=== PATIENT | male | born 1970 | race Caucasian/White ===

== ENCOUNTER 2019-07-05 12:23 | Inpatient (IN) ==
[2019-07-05] MEDS ORDERED: *HR* HYDROmorphone (PF) 1 MG/ML SYRINGE IVP ONE (12:35)
[2019-07-05] MEDS ORDERED: Ondansetron 4 MG/2 ML VIAL IVP ONE (12:35)
[2019-07-05] MEDS ORDERED: Isovue-370 500 ML BOTTLE IVP ONE (12:35)
[2019-07-05] MEDS ORDERED: 0.9 % Sodium Chloride 1,000 ML IVC ONE (12:35)
[2019-07-05 12:54] LABS: Bilirubin,Urine Negative (Negative); Blood,Urine Negative (Negative); Clarity,Urine Clear (Clear); Color,Urine Yellow (Yellow); Glucose,Urine (UA) Normal (Normal); Ketones,Urine Negative (Negative); Leukocyte Esterase,Urine Negative (Negative); Nitrite,Urine Negative (Negative); PH,Urine 5.5 pH Units (5.0-8.0); Protein,Urine Negative (Neg-Trace); Specific Gravity,Urine 1.024 (1.010-1.025); Urobilinogen,Urine Normal (Normal)
[2019-07-05 13:16] LABS: Basophils # 0.1 K/mcL (0.0-0.2); Basophils % 0.4 %; Eosinophils # 0.1 K/mcL (0.0-0.6); Eosinophils % 0.6 %; Hematocrit 41.8 % (37.5-50.1); Hemoglobin 14.6 g/dL (12.9-16.9); Immature Granulocytes % 0.4 % (0-4); Lymphocytes # 1.5 K/mcL (0.6-4.6); Lymphocytes % 10.2 %; Mean Corpuscular HGB Conc 34.9 g/dL (31.6-35.5); Mean Corpuscular Hemoglobin 29.1 pg (28.0-33.3); Mean Corpuscular Volume 83.3 fL (83.0-100.0); Mean Platelet Volume 12.4 fL (9.4-12.4); Monocytes # 1.3 K/mcL (0.0-1.3); Monocytes % 8.9 %; Neutrophils # 11.3 K/mcL (1.6-8.9); Platelet Count 157 K/mcL (140-400); Red Blood Count 5.02 M/mcL (4.19-5.50); Red Cell Distribution Width 12.9 % (11.5-14.5); Segmented Neutrophils % 79.5 %; White Blood Count 14.2 K/mcL (4.3-11.1)
[2019-07-05 13:44] LABS: Alanine Aminotransferase 17 Units/L (7-52); Albumin 4.2 g/dL (3.5-5.7); Albumin/Globulin Ratio 1.4 (1.1-2.2); Alkaline Phosphatase 65 Units/L (34-104); Amylase 21 Units/L (29-103); Aspartate Amino Transferase 10 Units/L (13-39); BUN/Creatinine Ratio 15 (6-26); Bilirubin,Direct 0.3 mg/dL (0.0-0.2); Bilirubin,Indirect 0.9 mg/dL (0.0-1.0); Bilirubin,Total 1.2 mg/dL (0.3-1.0); Blood Urea Nitrogen 12 mg/dL (6-20); Calcium 9.3 mg/dL (8.6-10.3); Carbon Dioxide 25 mEq/L (23-29); Chloride 103 mEq/L (98-107); Globulin 2.9 g/dL (2.4-3.5); Glucose 110 mg/dL (70-105); Lipase 14 Units/L (11-82); Osmolality,Calculated 282 (280-300); Potassium 3.9 mEq/L (3.5-5.1); Sodium 136 mEq/L (136-145); Total Protein 7.1 g/dL (6.4-8.9); eGFR For African Americans > 60 (> 60); eGFR For Non-African Americans > 60 (> 60)
[2019-07-05] MEDS ORDERED: Piperacillin/Tazobactam 3.375 GM in 0.9 % Sodium Chloride Mini Bag 100 ML IVPB ONE (14:51)
[2019-07-05] MEDS ORDERED: Acetaminophen 325 MG TABLET PO PRN (15:32)
[2019-07-05] MEDS ORDERED: Naloxone 0.4 MG/ML INJ IVP PRN (15:32)
[2019-07-05] MEDS ORDERED: Ondansetron 4 MG/2 ML VIAL IVP PRN (15:32)
[2019-07-05 18:03] LABS: INR 1.2; Prothrombin Time 13.8 Seconds (9.4-12.1)
[2019-07-05 18:06] LABS: Activated Partial Thrombo Time 31.6 Seconds (26.0-36.0)
[2019-07-05] MEDS: *HR* OxyCODONE/APAP 10/325 TABLET PO PRN (19:51)
[2019-07-05] MEDS ORDERED: *HR* LORazepam 2 MG/ML VIAL IVP PRN (19:58)
[2019-07-05] MEDS: Cefepime HCl 2,000 MG in 0.9 % Sodium Chloride Mini Bag 100 ML IVPB SCH (22:26)
[2019-07-06 02:17] LABS: Basophils # 0.1 K/mcL (0.0-0.2); Basophils % 0.6 %; Eosinophils # 0.2 K/mcL (0.0-0.6); Eosinophils % 1.6 %; Hematocrit 38.8 % (37.5-50.1); Immature Granulocytes % 0.4 % (0-4); Lymphocytes # 1.7 K/mcL (0.6-4.6); Lymphocytes % 15.4 %; Mean Corpuscular HGB Conc 33.5 g/dL (31.6-35.5); Mean Corpuscular Volume 86.6 fL (83.0-100.0); Mean Platelet Volume 12.4 fL (9.4-12.4); Monocytes # 1.1 K/mcL (0.0-1.3); Monocytes % 10.3 %; Neutrophils # 7.8 K/mcL (1.6-8.9); Platelet Count 130 K/mcL (140-400); Red Blood Count 4.48 M/mcL (4.19-5.50); Segmented Neutrophils % 71.7 %; White Blood Count 10.9 K/mcL (4.3-11.1)
[2019-07-06 02:21] LABS: INR 1.3; Prothrombin Time 14.4 Seconds (9.4-12.1)
[2019-07-06 02:37] LABS: BUN/Creatinine Ratio 16 (6-26); Blood Urea Nitrogen 12 mg/dL (6-20); Calcium 8.7 mg/dL (8.6-10.3); Carbon Dioxide 27 mEq/L (23-29); Chloride 103 mEq/L (98-107); Glucose 106 mg/dL (70-105); Osmolality,Calculated 280 (280-300); Potassium 3.6 mEq/L (3.5-5.1); Sodium 135 mEq/L (136-145); eGFR For African Americans > 60 (> 60); eGFR For Non-African Americans > 60 (> 60)
[2019-07-06] MEDS: Cefepime HCl 2,000 MG in 0.9 % Sodium Chloride Mini Bag 100 ML IVPB SCH ×3 (05:16→22:51)
[2019-07-06] MEDS: *HR* OxyCODONE/APAP 10/325 TABLET PO PRN (08:04)
[2019-07-06] MEDS: MetroNIDAZOLE 500 MG/100 ML 500 MG/100 ML BAG IVPB SCH (16:58)
[2019-07-06] MEDS ORDERED: Insulin LISPRO 300 UNITS/3 ML VIAL SQ SCH (17:15)
[2019-07-06] MEDS: *HR* Heparin 5,000 UNIT/ML VIAL SQ SCH (22:51)
[2019-07-07] MEDS: MetroNIDAZOLE 500 MG/100 ML 500 MG/100 ML BAG IVPB SCH ×4 (00:18→23:53)
[2019-07-07] MEDS: *HR* Heparin 5,000 UNIT/ML VIAL SQ SCH ×3 (06:02→22:04)
[2019-07-07] MEDS: Cefepime HCl 2,000 MG in 0.9 % Sodium Chloride Mini Bag 100 ML IVPB SCH ×3 (06:02→22:05)
[2019-07-07 06:53] LABS: Basophils # 0.1 K/mcL (0.0-0.2); Basophils % 0.4 %; Eosinophils # 0.2 K/mcL (0.0-0.6); Eosinophils % 1.4 %; Hematocrit 39.4 % (37.5-50.1); Hemoglobin 13.3 g/dL (12.9-16.9); Immature Granulocytes % 0.4 % (0-4); Lymphocytes # 1.4 K/mcL (0.6-4.6); Lymphocytes % 12.1 %; Mean Corpuscular HGB Conc 33.8 g/dL (31.6-35.5); Mean Corpuscular Hemoglobin 28.7 pg (28.0-33.3); Mean Corpuscular Volume 85.1 fL (83.0-100.0); Mean Platelet Volume 12.2 fL (9.4-12.4); Monocytes # 0.9 K/mcL (0.0-1.3); Monocytes % 7.9 %; Platelet Count 158 K/mcL (140-400); Red Blood Count 4.63 M/mcL (4.19-5.50); Red Cell Distribution Width 12.6 % (11.5-14.5); Segmented Neutrophils % 77.8 %; White Blood Count 11.6 K/mcL (4.3-11.1)
[2019-07-07 07:21] LABS: BUN/Creatinine Ratio 15 (6-26); Blood Urea Nitrogen 11 mg/dL (6-20); Carbon Dioxide 27 mEq/L (23-29); Chloride 100 mEq/L (98-107); Glucose 113 mg/dL (70-105); Magnesium 2.1 mg/dL (1.6-2.6); Osmolality,Calculated 282 (280-300); Sodium 136 mEq/L (136-145); eGFR For African Americans > 60 (> 60); eGFR For Non-African Americans > 60 (> 60)
[2019-07-07 09:47] LABS: Estimated Average Glucose 123 mg/dl
[2019-07-07] MEDS ORDERED: Isovue-370 500 ML BOTTLE IVP ONE (10:45)
[2019-07-07] MEDS: *HR* OxyCODONE/APAP 10/325 TABLET PO PRN (16:51)
[2019-07-07] MEDS ORDERED: Acetaminophen IV 1,000 MG/100 ML INFUS..BTL IVPB ONE (16:56)
[2019-07-08] MEDS: Cefepime HCl 2,000 MG in 0.9 % Sodium Chloride Mini Bag 100 ML IVPB SCH (05:39)
[2019-07-08] MEDS: *HR* Heparin 5,000 UNIT/ML VIAL SQ SCH ×3 (05:40→23:00)
[2019-07-08] MEDS: *HR* OxyCODONE/APAP 10/325 TABLET PO PRN ×2 (05:43→16:02)
[2019-07-08 09:14] LABS: Basophils # 0.1 K/mcL (0.0-0.2); Basophils % 0.5 %; Eosinophils # 0.1 K/mcL (0.0-0.6); Eosinophils % 1.4 %; Hematocrit 40.8 % (37.5-50.1); Immature Granulocytes % 0.4 % (0-4); Mean Corpuscular HGB Conc 34.3 g/dL (31.6-35.5); Mean Corpuscular Hemoglobin 28.5 pg (28.0-33.3); Mean Corpuscular Volume 82.9 fL (83.0-100.0); Mean Platelet Volume 12.3 fL (9.4-12.4); Monocytes # 0.7 K/mcL (0.0-1.3); Monocytes % 7.8 %; Neutrophils # 7.3 K/mcL (1.6-8.9); Platelet Count 206 K/mcL (140-400); Red Blood Count 4.92 M/mcL (4.19-5.50); Red Cell Distribution Width 12.5 % (11.5-14.5); Segmented Neutrophils % 78.9 %; White Blood Count 9.3 K/mcL (4.3-11.1)
[2019-07-08] MEDS: MetroNIDAZOLE 500 MG/100 ML 500 MG/100 ML BAG IVPB SCH ×3 (09:20→22:56)
[2019-07-09] MEDS: *HR* Heparin 5,000 UNIT/ML VIAL SQ SCH ×3 (05:32→20:47)
[2019-07-09 05:42] LABS: Hematocrit 39.3 % (37.5-50.1); Hemoglobin 13.5 g/dL (12.9-16.9); Mean Corpuscular HGB Conc 34.4 g/dL (31.6-35.5); Mean Corpuscular Hemoglobin 29.3 pg (28.0-33.3); Mean Corpuscular Volume 85.4 fL (83.0-100.0); Mean Platelet Volume 11.9 fL (9.4-12.4); Platelet Count 200 K/mcL (140-400); Red Cell Distribution Width 12.4 % (11.5-14.5); White Blood Count 10.6 K/mcL (4.3-11.1)
[2019-07-09 05:59] LABS: BUN/Creatinine Ratio 12 (6-26); Blood Urea Nitrogen 10 mg/dL (6-20); Calcium 9.4 mg/dL (8.6-10.3); Carbon Dioxide 29 mEq/L (23-29); Chloride 97 mEq/L (98-107); Glucose 124 mg/dL (70-105); Osmolality,Calculated 278 (280-300); Sodium 134 mEq/L (136-145); eGFR For African Americans > 60 (> 60); eGFR For Non-African Americans > 60 (> 60)
[2019-07-09] MEDS: MetroNIDAZOLE 500 MG/100 ML 500 MG/100 ML BAG IVPB SCH ×3 (09:15→23:38)
[2019-07-10 05:27] LABS: Hematocrit 40.1 % (37.5-50.1); Hemoglobin 13.6 g/dL (12.9-16.9); Mean Corpuscular HGB Conc 33.9 g/dL (31.6-35.5); Mean Corpuscular Hemoglobin 28.6 pg (28.0-33.3); Mean Corpuscular Volume 84.2 fL (83.0-100.0); Mean Platelet Volume 11.7 fL (9.4-12.4); Platelet Count 205 K/mcL (140-400); Red Blood Count 4.76 M/mcL (4.19-5.50); Red Cell Distribution Width 12.3 % (11.5-14.5); White Blood Count 8.4 K/mcL (4.3-11.1)
[2019-07-10] MEDS: *HR* Heparin 5,000 UNIT/ML VIAL SQ SCH ×3 (05:36→22:54)
[2019-07-10] MEDS: MetroNIDAZOLE 500 MG/100 ML 500 MG/100 ML BAG IVPB SCH ×3 (08:14→22:53)
[2019-07-11] MEDS: *HR* Heparin 5,000 UNIT/ML VIAL SQ SCH (05:09)
[2019-07-11] MEDS ORDERED: Isovue-370 500 ML BOTTLE IVP ONE (07:48)
[2019-07-11] MEDS: MetroNIDAZOLE 500 MG/100 ML 500 MG/100 ML BAG IVPB SCH (08:36)
[2019-07-11] MEDS ORDERED: Isovue-370 500 ML BOTTLE PO ONE (11:04)
[2019-07-11 11:11] VITALS: BP 113/76
== END 2019-07-11 13:24 | disposition home or self-care (01) | DRG 392 ==
LOC: 3ANU 12:23 → EMEROOARM 12:23 → SUATTDRO 15:52 → 3ANU 16:49 → SUATTDRO 07-07 13:22
PROVIDERS: ADMIT Pharmacist; ATTEND Internal Medicine